=== PATIENT | female | born 1975 | race Hispanic/Latino ===

== ENCOUNTER 2019-12-20 09:32 | Emergency (ER) | payer SELFPAY ==
--- NOTE | 2019-12-20 09:47 | EDPHYS ---
Physician Documentation [facility] Name: Raiza Hartley Age: 44 yrs Sex: Female : 1975 Arrival Date: 12/20/2019 Time: 09:35 Bed 20 Private MD: out of town, doctor ED Physician Juan Gilbert HPI: 12/19 09:47 This 44 yrs old Female presents to ER via Ambulatory with complaints of kb Abscess. 09:47 The patient presents with an abscess of the left labia majora. Description: swollen. kb Onset: The symptoms/episode began/occurred 3 day(s) ago. Possible cause(s): unknown. Associated signs and symptoms: The patient has no apparent associated signs or symptoms. Modifying factors: the symptoms are alleviated by nothing, the symptoms are aggravated by nothing. Severity of symptoms: At their worst the symptoms were moderate, in the emergency department the symptoms are unchanged. The patient has not experienced similar symptoms in the past. The patient has not recently seen a physician. Pt reports she has an abscess to vaginal area that started 3 days ago. . Historical: - Allergies: 09:47 No Known Allergies; ss - PMHx: 09:47 boredline diabetic; Hypertension; ss - PSHx: 09:47 Hysterectomy; ss - Immunization history:: Adult Immunizations up to date. - Social history:: Smoking status: Patient denies any tobacco usage or history of. ROS: 09:46 Constitutional: Negative for fever, chills, and weight loss, Cardiovascular: Negative kb for chest pain, palpitations, and edema, Respiratory: Negative for shortness of breath, cough, wheezing, and pleuritic chest pain, Abdomen/GI: Negative for abdominal pain, nausea, vomiting, diarrhea, and constipation, Back: Negative for injury and pain, : Negative for injury, bleeding, discharge, and swelling, MS/Extremity: Negative for injury and deformity, Neuro: Negative for headache, weakness, numbness, tingling, and seizure. 09:46 Skin: Positive for abscess, swelling, of the left labia majora. Exam: 09:46 Constitutional: This is a well developed, well nourished patient who is awake, alert, kb and in no acute distress. Head/Face: Normocephalic, atraumatic. Neck: Trachea midline, no thyromegaly or masses palpated, and no cervical lymphadenopathy. Supple, full range of motion without nuchal rigidity, or vertebral point tenderness. No Meningismus. Chest/axilla: Normal chest wall appearance and motion. Nontender with no deformity. No lesions are appreciated. Cardiovascular: Regular rate and rhythm with a normal S1 and S2. No gallops, murmurs, or rubs. Normal PMI, no JVD. No pulse deficits. Respiratory: Lungs have equal breath sounds bilaterally, clear to auscultation and percussion. No rales, rhonchi or wheezes noted. No increased work of breathing, no retractions or nasal flaring. Abdomen/GI: Soft, non-tender, with normal bowel sounds. No distension or tympany. No guarding or rebound. No evidence of tenderness throughout. MS/ Extremity: Pulses equal, no cyanosis. Neurovascular intact. Full, normal range of motion. Neuro: Awake and alert, GCS 15, oriented to person, place, time, and situation. Cranial nerves II-XII grossly intact. Motor strength 5/5 in all extremities. Sensory grossly intact. Cerebellar exam normal. Normal gait. 09:46 Skin: abscess, that is moderate sized, of the left labia majora, with induration. Vital Signs: 09:45 BP 143 / 79; Pulse 92; Resp 17; Temp 98.3(O); Pulse Ox 100% on R/A; Weight 104.33 kg; ss Height 5 ft. 3 in. (160.02 cm); Pain 7/10; 09:45 Body Mass Index 40.74 (104.33 kg, 160.02 cm) ss MDM: 09:37 Patient medically screened. kb 09:45 Data reviewed: vital signs, nurses notes. Data interpreted: Pulse oximetry: on room air kb is 100 %. Interpretation: normal. Counseling: I had a detailed discussion with the patient and/or guardian regarding: the historical points, exam findings, and any diagnostic results supporting the discharge/admit diagnosis, the need for outpatient follow up, an OB/Gyne specialist, to return to the emergency department if symptoms worsen or persist or if there are any questions or concerns that arise at home. Administered Medications: No medications were administered Disposition: 09:56 Co-signature as Attending Physician, Juan Gilbetr MD. kdr 09:57 Co-signature as Attending Physician, Juan Gilbert MD I agree with the assessment and kdr plan of care. Disposition: 12/20/19 09:46 Discharged to Home. Impression: Cutaneous abscess of groin - left labia majora. - Condition is Stable. - Discharge Instructions: Skin Abscess, [id number]. - Prescriptions for Keflex 500 mg Oral Capsule - take 1 capsule by ORAL route every 8 hours for 10 days; 30 capsule. Bactrim DS 800- 160 mg Oral Tablet - take 1 tablet by ORAL route every 12 hours for 10 days; 20 tablet. - Medication Reconciliation Form, Thank You Letter, Antibiotic Education, Prescription Opioid Use form. - Follow up: Angie Kam MD; When: 2 - 3 days; Reason: Recheck today's complaints. Signatures: Reyna De La Rosa, WELDER GAS-C WELDER GAS-Ckb Juan Gilbert MD MD [facility] Gillian Pope, RN RN ss Corrections: (The following items were deleted from the chart) 09:49 09:46 12/20/2019 09:46 Discharged to Home. Impression: Cutaneous abscess of groin - ss left labia majora. Condition is Stable. Forms are Medication Reconciliation Form, Thank You Letter, Antibiotic Education, Prescription Opioid Use. Follow up: Angie Kam; When: 2 - 3 days; Reason: Recheck today's complaints. kb
--- NOTE | 2019-12-20 09:50 | ER ---
Nurse's Notes [facility] Name: Raiza Hartley Age: 44 yrs Sex: Female : 1975 Arrival Date: 12/20/2019 Time: 09:35 Bed 20 Private MD: out of town, doctor Diagnosis: Cutaneous abscess of groin-left labia majora Presentation: 12/19 09:45 Chief complaint: Patient states: abscess to groin area that began 3 days ago. Denies ss fever. Coronavirus screen: Proceed with normal triage. Patient denies a cough. Patient denies shortness of breath or difficulty breathing. Patient denies measured and/or subjective temperature greater than 100.4F prior to today's visit. Patient denies travel on a cruise ship or to a country the [facility] currently lists as an affected area. Patient denies contact with known and/or suspected case of COVID-19. Ebola Screen: Patient denies exposure to infectious person. Patient denies travel to an Ebola-affected area in the 21 days before illness onset. Initial Sepsis Screen: Does the patient meet any 2 criteria? No. Patient's initial sepsis screen is negative. Does the patient have a suspected source of infection? No. Patient's initial sepsis screen is negative. Risk Assessment: Do you want to hurt yourself or someone else? Patient reports no desire to harm self or others. Onset of symptoms was December 17, 2019. 09:45 Method Of Arrival: Ambulatory ss 09:45 Acuity: DA 5 ss Historical: - Allergies: 09:47 No Known Allergies; ss - PMHx: 09:47 boredline diabetic; Hypertension; ss - PSHx: 09:47 Hysterectomy; ss - Immunization history:: Adult Immunizations up to date. - Social history:: Smoking status: Patient denies any tobacco usage or history of. Screenin:47 Abuse screen: Denies threats or abuse. Denies injuries from another. Nutritional ss screening: No deficits noted. Tuberculosis screening: Never had TB. Fall Risk None identified. Assessment: 09:47 General: Appears in no apparent distress. comfortable, Behavior is calm, cooperative, ss Denies fever, feeling ill, fatigue, chills. Pain: Complains of pain in left labia majora Pain currently is 7 out of 10 on a pain scale. Quality of pain is described as tender, Pain began 2-3 days ago. Neuro: Level of Consciousness is awake, alert, obeys commands. Respiratory: Airway is patent Respiratory effort is even, unlabored, Respiratory pattern is regular, symmetrical. GI: Patient currently denies abdominal pain, diarrhea, nausea, vomiting. Derm: Skin is intact, is healthy with good turgor, Skin is dry, Skin is pink, warm \T\ dry. normal. Derm: Abscess located on left labia majora is quarter sized, has no drainage, is hot to touch, is red, is raised. Musculoskeletal: Circulation, motion, and sensation intact. Range of motion: intact in all extremities, Swelling absent. Vital Signs: 09:45 BP 143 / 79; Pulse 92; Resp 17; Temp 98.3(O); Pulse Ox 100% on R/A; Weight 104.33 kg; ss Height 5 ft. 3 in. (160.02 cm); Pain 7/10; 09:45 Body Mass Index 40.74 (104.33 kg, 160.02 cm) ss ED Course: 09:35 Patient arrived in ED. mr 09:35 out of town, doctor is Private Physician. mr 09:37 Reyna De La [facility] kb 09:37 Juan Gilbert MD is Attending Physician. kb 09:46 Angie Kam MD is Referral Physician. kb 09:46 Triage completed. ss 09:47 Arm band placed on right wrist. ss 09:47 Patient has correct armband on for positive identification. Bed in low position. Call ss light in reach. 09:47 No provider procedures requiring assistance completed. Patient did not have IV access ss during this emergency room visit. Administered Medications: No medications were administered Outcome: 09:46 Discharge ordered by . kb 09:47 Discharged to home ambulatory. ss 09:47 Condition: good 09:47 Discharge instructions given to patient, Instructed on discharge instructions, follow up and referral plans. medication usage, Demonstrated understanding of instructions, follow-up care, medications, Prescriptions given X 2. 09:49 Patient left the ED. ss Signatures: Reyna De La Rosa FNP-C FNP-Enedelia Lia Staton Gillian Pope, RN RN ss
[2019-12-20 09:54] VITALS: BP 143/79; TEMP 98.3; O2SAT 100
== END 2019-12-20 09:49 | disposition home or self-care (01) ==
LOC: ER 09:32
DX: N76.4 Abscess of vulva (principal); I10 Essential (primary) hypertension; R73.03 Prediabetes

== ENCOUNTER 2023-07-02 00:12 | Emergency (ER) | payer BC ==
--- OUTSIDE RECORDS SUMMARY | 2023-07-02 00:16 | XMS REPORT | Continuity of Care Document ---
:1975 Author Organization [facility] t Address [address] [facility] [address] [place] [id number] Care Team Providers Name Role Phone [email or web address] Attending Clinician Unavailable [email or web address] Admitting Clinician Unavailable Payers Payer Name Policy Type Policy Number Effective Date Expiration Date S wilfred[place] [id number] 2021 00:00:00 [place] Problems This patient has no known problems. Allergies, Adverse Reactions, Alerts This patient has no known allergies or adverse reactions. Medications This patient has no known medications. Procedures This patient has no known procedures. Encounters Start End Encounter Admission Attending Care Care Encounter Source Date/Time Date/Time Type Type Clinicians Facility Department ID 2023-06-08 2023-06-08 Outpatient [email or web address] PRIV PRIV [id number] [facility] 00:00:00 00:00:00 diyala_S [id number] Medic al 2023-06-08 2023-06-08 Outpatient [email or web address] PRIV PRIV [id number] [facility] 00:00:00 00:00:00 diyala_S [id number] Medic al 2023-03-31 2023-03-31 Outpatient [email or web address] PRIV PRIV [id number] [facility] 00:00:00 00:00:00 diyala_S [id number] Medic al 2023-03-31 2023-03-31 Outpatient [email or web address] PRIV PRIV [id number] [facility] 00:00:00 00:00:00 diyala_S [id number] Medic al Results This patient has no known results.
[2023-07-02] MEDS ORDERED: dexAMETHasone 10 MG/ML VIAL ONE (01:02)
[2023-07-02] MEDS ORDERED: KETOROLAC 30 MG/ML INJ ONE (01:02)
--- NOTE | 2023-07-02 01:27 | EDPHYS ---
Physician Documentation [facility] Name: Raiza Mcdowell Age: 48 yrs Sex: Female : 1975 Arrival Date: 07/02/2023 Time: 00:12 Bed IW1 Private MD: JAVI Physician Nitin Pritchard HPI: 07/02 01:41 This 48 yrs old Female presents to ER via Ambulatory with complaints of Back kb Pain. 01:41 Patient is a 48-year-old female with a history of low back pain that presents for right kb low back pain that radiates down both legs. States pain started radiating down both legs 3 to 4 days ago. Denies incontinence of bladder/bowel, urinary retention or constipation. States she has been seen by Dr. Saldana, had MRI completed and was referred to a pain management doctor. States she sees Dr. Aguilar for pain management and recently ran out of diclofenac. States this pain is similar to episode she had in the past. Ambulates with steady gait.. 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 - Social history:: Smoking status: Patient denies any tobacco usage or history of. Patient/guardian denies using alcohol, street drugs. ROS: 01:39 Constitutional: Negative for fever, chills, and weight loss, kb 01:39 Back: Positive for pain at rest, pain with movement, of the right low back, 01:39 All other systems are negative, Exam: 01:39 Constitutional: This is a well developed, well nourished patient who is awake, alert, kb and in no acute distress. Head/Face: Normocephalic, atraumatic. ENT: Moist Mucous membranes Cardiovascular: Regular rate Respiratory: Respirations even and unlabored. No increased work of breathing. Talking in full sentences Abdomen/GI: Soft, non-tender. No distention Skin: Warm, dry with normal turgor. Normal color. MS/ Extremity: Pulses equal, no cyanosis. Neurovascular intact. Full, normal range of motion. Neuro: Awake and alert, GCS 15, oriented to person, place, time, and situation. Moves all extremities. Normal gait. 01:39 Back: pain, that is moderate, of the right low back, ROM is painful, normal spinal alignment noted, CVA tenderness, is absent, vertebral tenderness, is not appreciated, Vital Signs: 00:34 BP 146 / 95; Pulse 83; Resp 20; Temp 98.1; Pulse Ox 100% ; Weight 81.65 kg; Height 5 jj7 ft. 3 in. ; Pain 8/10; 01:32 BP 141 / 89; Pulse 78; Resp 17; Pulse Ox 99% ; Pain 2/10; jj7 00:34 Body Mass Index 31.89 (81.65 kg, 160.02 cm) jj7 00:34 Pain Scale: Adult jj7 01:32 Pain Scale: Adult jj7 MDM: 00:34 Patient medically screened. 01:40 Differential diagnosis: arthritis, strain, fracture, sciatica, contusion, Herniated kb disc UTI. Data reviewed: vital signs, nurses notes. Test considered but Not performed: X-ray: x-ray considered, but pt has no bony tenderness, pain is chronic, denies trauma/injury. Counseling: I had a detailed discussion with the patient and/or guardian regarding the historical points, exam findings, and any diagnostic results supporting the discharge/admit diagnosis, the need for outpatient follow up, pain management, to return to the emergency department if symptoms worsen or persist or if there are any questions or concerns that arise at home. Response to treatment: the patient's symptoms have markedly improved after treatment. Administered Medications: 00:53 Drug: Dexamethasone IM 10 mg IM once Route: IM; Site: right gluteus; jj7 01:19 Follow up: Response: Marked relief of symptoms jj7 00:53 Drug: Ketorolac IM 30 mg IM once Route: IM; Site: right gluteus; jj7 01:19 Follow up: Response: Marked relief of symptoms jj7 Disposition Summary: 07/02/23 01:26 Discharge Ordered Notes: Location: Home Condition: Stable kb Diagnosis - Low back pain kb Followup: kb - With: Emergency Department - When: As needed - Reason: Worsening of condition Followup: kb - With: Private Physician - When: 2 - 3 days - Reason: Recheck today's complaints, Continuance of care, Re-evaluation by your physician Discharge Instructions: - Discharge Summary Sheet kb - Chronic Back Pain, [id number] kb Forms: - Medication Reconciliation Form kb - Thank You Letter kb - Antibiotic Education kb - Prescription Opioid Use kb - Patient Portal Instructions kb - Leadership Thank You Letter kb Prescriptions: - Diclofenac Sodium 75 mg Oral tablet, delayed release (enteric coated) - take 1 tablet ORAL route 2 times per day As needed; 30 tablet; Refills: 0, kb Product Selection Permitted Signatures: Reyna De La Rosa, MEMEC DIRK-Antoni Spain RN RN jj7
--- NOTE | 2023-07-02 01:27 | ER ---
Nurse's Notes [facility] Name: Raiza Mcdowell Age: 48 yrs Sex: Female : 1975 Arrival Date: 07/02/2023 Time: 00:12 Bed IW1 Private MD: Diagnosis: Low back pain Presentation: 07/02 00:34 Chief complaint: Patient states: SHOOTING PAIN DOWN BOTH LEGS FOR A FEW DAYS. jj7 Coronavirus screen: At this time, the client does not indicate any symptoms associated with coronavirus-19. Ebola Screen: No symptoms or risks identified at this time. Initial Sepsis Screen: Does the patient meet any 2 criteria? No. Patient's initial sepsis screen is negative. Does the patient have a suspected source of infection? No. Patient's initial sepsis screen is negative. Risk Assessment: Do you want to hurt yourself or someone else? Patient reports no desire to harm self or others. 00:34 Method Of Arrival: Ambulatory j 00:34 Acuity: DA 4 jj7 Triage Assessment: 00:39 General: Appears in no apparent distress. uncomfortable, Behavior is calm, cooperative, jj7 appropriate for age. Pain: Complains of pain in right leg and left leg Pain currently is 8 out of 10 on a pain scale. Musculoskeletal: Range of motion: intact in all extremities. 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 - Social history:: Smoking status: Patient denies any tobacco usage or history of. Patient/guardian denies using alcohol, street drugs. Screenin:44 [facility] ED Fall Risk Assessment (Adult) History of falling in the last 3 months, jj7 including since admission No falls in past 3 months (0 pts) Confusion or Disorientation No (0 pts) Intoxicated or Sedated Yes (3 pts) Impaired Gait No (0 pts) Mobility Assist Device Used No (0 pt) Altered Elimination No (0 pt) Score/Fall Risk Level 0 - 2 = Low Risk Oriented to surroundings, Maintained a safe environment. Abuse screen: Denies threats or abuse. Nutritional screening: No deficits noted. Tuberculosis screening: No symptoms or risk factors identified. Assessment: 00:44 Reassessment: SEE TRIAGE ASSESSMENT. Neuro: No deficits noted. jj7 Vital Signs: 00:34 BP 146 / 95; Pulse 83; Resp 20; Temp 98.1; Pulse Ox 100% ; Weight 81.65 kg; Height 5 jj7 ft. 3 in. ; Pain 8/10; 01:32 BP 141 / 89; Pulse 78; Resp 17; Pulse Ox 99% ; Pain 2/10; jj7 00:34 Body Mass Index 31.89 (81.65 kg, 160.02 cm) jj7 00:34 Pain Scale: Adult jj7 01:32 Pain Scale: Adult jj7 ED Course: 00:26 Patient arrived in ED. gm2 00:34 Reyna De La Rosa FNP-C is [facility]. kb 00:34 Nitin Pritchard MD is Attending Physician. kb 00:39 Triage completed. jj7 00:39 Arm band placed on right wrist. jj7 00:44 Patient has correct armband on for positive identification. Provided Education on: F/U. jj7 00:44 No provider procedures requiring assistance completed. Patient did not have IV access jj7 during this emergency room visit. Administered Medications: 00:53 Drug: Dexamethasone IM 10 mg IM once Route: IM; Site: right gluteus; jj7 01:19 Follow up: Response: Marked relief of symptoms jj7 00:53 Drug: Ketorolac IM 30 mg IM once Route: IM; Site: right gluteus; jj7 01:19 Follow up: Response: Marked relief of symptoms jj7 Medication: 00:44 VIS not applicable for this client. jj7 Outcome: :26 Discharge ordered by . kb 01:32 Discharged to home ambulatory, jj7 01:32 Condition: improved 01:32 Discharge instructions given to patient, Instructed on discharge instructions, follow up and referral plans. medication usage, Demonstrated understanding of instructions, follow-up care, medications, Prescriptions given X 1, 01:33 Patient left the ED. jj7 Signatures: Reyna De La Rosa FNP-C FNP-Antoni Spain, RN RN jj7 Jennifer Flores gm2
[2023-07-02 02:31] VITALS: TEMP 98.1
[2023-07-02 02:32] VITALS: BP 141/89; O2SAT 99
== END 2023-07-02 01:33 | disposition home or self-care (01) ==
LOC: ER 00:12
DX: M54.50 Low back pain, unspecified (principal)
CPT/HCPCS: 96372; 99284; J1100

== ENCOUNTER 2023-07-10 11:56 | Day surgery (SDC) | payer BC ==
[2023-07-06 08:46] LABS: Absolute Lymphocytes (CBC) 2.1 K/uL (0.7-4.9); Hematocrit 36.5 % (36.0-45.0); Lymphocytes % 25.7 % (15.3-44.8); MCV 87.6 fL (80-100); MPV 7.7 fL (7.6-11.3); Platelets 292 thou/uL (152-406); RBC Red Blood Cell Count 4.16 M/uL (3.86-4.86)
[2023-07-06 08:54] LABS: Protime INR 1.02
--- NOTE | 2023-07-06 09:01 | RAD REPORT ---
EXAM DESCRIPTION: RAD - Chest Pa And Lat (2 Views) - 07/06/2023 8:49 am CLINICAL HISTORY: pre op Bunionectomy 1st metatarsal left Chest pain. COMPARISON: No comparisons FINDINGS: Small calcified granuloma seen in the left lung base laterally. The lungs are otherwise cl ear. The heart is normal in size. No displaced fractures. IMPRESSION: No acute or concerning finding suspected. The USPSTF recommends annual screening for lung cancer with low-dose CT (LDCT) in adults aged 50 to 8 0 years who have a 20 pack-year smoking history and currently smoke or have quit within the past 15 y ears.
[2023-07-06 09:05] LABS: Potassium 4.2 mEq/L (3.5-5.1)
--- NOTE | 2023-07-08 10:58 | PREOPHP ---
Date of Admission: 07/10/2023 History Of Present Illness: This patient presented to my office with a chief complaint of a painful big toe joint present on the left foot for a number of years. The pain is worse with activity, impro perry by rest, moderate in severity, throbbing in nature. The patient has modified shoe gear, taken an xspo-utc-imczitn anti-inflammatories, although with no improvement, requests evaluation. Past Medical History: Diabetes, asthma, arthritis, and hypertension. Current Medications: Include, phentermine, atorvastatin 20 mg, gabapentin 600 mg, amlodipine 10 mg, benazepril 40 mg, glyburide 5 mg, metformin 500 mg, Ozempic 2 mg per dose subcutaneous injector. Allergies: NKDA. Past Surgical History: Includes , cholecystectomy, and partial hysterectomy. Social History: The patient denies smoking, alcohol, or IV drug use. Family History: Includes diabetes in her father. Physical Examination: Vital Signs: Weight 170, height 5 feet 3 inches. General: The patient is healthy, well developed, well nourished, well oriented x3. Cardiovascular: Dorsalis pedis and posterior tibial pulses are 4/4 bilaterally. Capillary refill ti me is less than 3 seconds to all toes. Temperature gradient is within normal limits. There is no cl audication, complaint or varicosities noted bilaterally. Musculoskeletal: Evaluation reveals a flexible pes planus foot type bilaterally. Subtalar joint gary ws increased valgus bilaterally. There is forefoot supinatus with adductus bilaterally. There is a medial eminence of the first metatarsal head with range of motion on the left tube at 80 degrees, but adducted and an 80 degrees right. Equinus is noted to be 0 degrees bilaterally per goniometer measu rement. Digits of both feet are noted to be contracted at the PIPJ, 2-5 semiflexible bilat. Muscle knee and ankle assessment are within normal limits. There is no tenderness on the plantar fascia. N o soft tissue masses are noted subcutaneously. Skin: Evaluation reveals no rash, ulcer, tumor, or contracture. Neurologic: Evaluation reveals deep tendon reflexes with the patella and Achilles to be 5/5 bilatera lly. Vibratory and sharp dull sensation within normal limits. X-ray: Evaluation of the left foot revealed an intermetatarsal angle of 16 degrees and hallux abduct us angle of 25 degrees, and HI angle of 18 degrees. Os tibiale externum type 2 is noted. Os trigonu m is present. There is calcification present of the dorsalis pedis and posterior tibial arteries and the first metatarsal artery noted on x-ray. There is a lateral deviation of the hallux and sesamoid s with increase in each intermetatarsal angle. Inferior and posterior calcaneal spur noted. Lesser metatarsals are adducted 1-4. No fracture tumor or DJD is noted bilaterally. Bones well mineralized . The diagnosis is hallux valgus deformity, left foot; pain in the left foot; and other deformities of toes, specifically the proximal phalanx and the hallux, which has an angulation deformity. The re commended treatment is for a bunionectomy with first metatarsal head osteotomy and an osteotomy of th e proximal phalanx to correct a separate angulation deformity of the proximal phalanx, both with fixa tion. The patient understands risks, benefits, and alternatives of the above-mentioned procedures in cluding, but not limited to the risk of pain, swelling, numbness, stiffness, infection, nonhealing of skin, soft tissue bone, loosening of fixation devices, and recurrence of the deformity. The patient requests surgical management and no longer desires conservative care. The patient has had a lower e xtremity arterial Doppler, which was within normal limits by Dr. Marshall finding the patient had good bl ood flow. The patient has been cleared by Dr. Diego, her primary care doctor from a diabetic standp oint. The patient was instructed on the use of cold therapy unit and a seal-tight device to keep the bandages dry in a postop shoe. The patient understands there is no work for at least 4-5 weeks and a postop shoe for 5 weeks. Medical H and P will be completed by Anesthesia. The patient has been in structed and has stopped her phentermine 1 week prior to surgery as well as her Ozempic. The patient is scheduled for surgery at [facility] on July 10, 2023. HUBERT/BRITTNEY Voice ID: [id number]
[2023-07-10] MEDS: NA CHLORIDE 0.9% 1,000 ML ONE ×2 (12:35→13:25)
[2023-07-10] MEDS ORDERED: CEFAZOLIN SODIUM 1 GM/VIAL ONE (12:37)
[2023-07-10] MEDS ORDERED: propofoL 200 MG/20 ML VIAL IV ONE (13:15)
[2023-07-10] MEDS ORDERED: FENTANYL CITR 100 MCG/2 ML ONE (13:15)
[2023-07-10] MEDS ORDERED: LIDOCAINE 2% MPF 5 ML VIAL ONE (13:16)
[2023-07-10] MEDS ORDERED: MIDAZOLAM HCL 2 MG/2 ML INJ ONE (13:17)
[2023-07-10] MEDS ORDERED: NA CHLORIDE 0.9% 50 ML ONE (13:21)
[2023-07-10] MEDS ORDERED: HYDROMORPHONE HCL 1 MG/ML INJ ONE (13:22)
[2023-07-10] MEDS ORDERED: NA CHLORIDE 0.9% 100 ML ONE (13:23)
[2023-07-10] MEDS ORDERED: ONDANSETRON 4 MG/2 ML VIAL ONE (13:47)
[2023-07-10] MEDS ORDERED: dexAMETHasone 10 MG/ML VIAL ONE (13:47)
[2023-07-10] MEDS ORDERED: EPHEDRINE SULF 50 MG/ML VIAL ONE (14:03)
--- NOTE | 2023-07-10 16:24 | RAD REPORT ---
EXAM DESCRIPTION: RAD - Foot Left 2 View - 07/10/2023 3:35 pm CLINICAL HISTORY: S/P LEFT FOOT BUNIONECTOMY W SCREW COMPARISON: No comparisons TECHNIQUE: Left foot, 3 views. FINDINGS: Postsurgical changes of first metatarsal osteotomy, with a cannulated fusion screw. No bart dence of complications. Adjacent postsurgical changes in the soft tissues. No fracture, dislocation or periosteal reaction. Accessory ossicle of the navicular. Moderate calcaneal spur. No air or foreign body in the soft tissues. IMPRESSION: Postsurgical changes of first metatarsal osteotomy. No other acute findings.
[2023-07-10 17:13] VITALS: TEMP 96.9; O2SAT 98
[2023-07-10 17:20] VITALS: BP 126/68
--- NOTE | 2023-07-10 23:13 | OP ---
Date of Procedure: 07/10/2023 Surgeon: Beni Roche DPM Preoperative Diagnosis: Hallux valgus deformity, left foot. Postoperative Diagnosis: Hallux valgus deformity, left foot. Procedure: Bunionectomy with first metatarsal head osteotomy with screw fixation and packing of bone cyst found intraoperatively with bone chips from the first metatarsal and [employer] DBX putty, l eft foot. Anesthesia: General. Procedure In Detail: The patient was brought into the operating room, placed on the operating room t able in the supine position. Once adequate anesthesia was obtained, the patient was prepped and drap ed in usual sterile manner. The left extremity was elevated for a period of 3 minutes to exsanguinat e the blood supply. Pneumatic ankle tourniquet was elevated to 250 mmHg. Attention was then directe d to the first MPJ of the left foot, where a dorsal linear incision was made overlying the first MPJ with a 15 blade. The incision was deepened via sharp and blunt dissection down to the level of capsu le, which was incised with a 15 blade in an inverted L-shaped fashion. Capsular tissue was dissected free from its bony attachments and the medial eminence was brought into view and resected utilizing an oscillating saw. The first interspace was then approached and a lateral capsulotomy, adductor ten otomy, and EHB tenotomy were performed. The foot was then repositioned with the knee bent and a V-sh aped osteotomy was created in the head of the first metatarsal with the apex distal and the arms prox imal. Utilizing an oscillating saw from medial to lateral, the osteotomy was created and the capital fragment was shifted laterally and impacted medially upon the shaft of the first metatarsal. The re maining eminence was removed utilizing the oscillating saw. With mild feathering to create a bicorre ctional osteotomy, a cyst was exposed at the apex medially of the first metatarsal shaft and collapse d approximately 1 cm in diameter by 5 mm in depth. It was a mild fluid and cystic formation. This w as curetted down to the solid bone. Bone chips from the second cut of the medial eminence were broke n up and placed into the cyst along with MTF DBX bone putty. It was filled and packed level with the shaft. The head was then fixated upon the shaft utilizing screw, 20 mm x 2.5 screw. A w haja was drilled from distal lateral to proximal plantar medial to avoid the cyst. It was then pre-dr illed and the screw was then placed after measuring and advanced the screw bit on the plantar cortex and good compression was obtained with no movement. The range of motion of the first MPJ was seen to be in excellent alignment and 80 degrees range of motion dorsally. The area was flushed with copiou s amounts of sterile saline. A medial capsulorrhaphy was then performed with the toe held in the cor rected position and utilizing 2-0 Vicryl sutures, capsular tissue was reapproximated. The extensor t endon was then tacked medially with 2 Vicryl sutures. The area was flushed again and good range of m otion was still obtained. The skin was closed utilizing 4-0 Prolene horizontal mattress suture. The foot was then injected with 10 cc of 0.5% Marcaine plain for anesthesia. The foot was dressed with Adaptic, dry sterile gauze, dry sterile Colby, Kerlix, cold therapy pad, Alvin bandaging. Pneumatic an kle tourniquet was released and capillary return was seen to be instantaneous to all digits. The pat ient was discharged to recovery in satisfactory condition. HUBERT/BRITTNEY Voice ID: [id number] Report ID: [id number]
--- NOTE | 2023-07-10 23:13 | DS ---
Date of Discharge: 07/10/2023 Date Of Surgery: 07/10/2023 Surgeon: Beni Roche DPM Preoperative Diagnosis: Hallux valgus deformity, left foot. Postoperative Diagnosis: Hallux valgus deformity, left foot. Procedure: Bunionectomy with first metatarsal head osteotomy with screw fixation, 20 mm x 2.5 screw and packing of bone cyst with DBX bone putty, all left foot. The patient tolerated the procedure and anesthesia well. Will be discharged to home in satisfactory condition per Anesthesia guidelines. T he patient has postop instructions and written form as well as emergency phone number and postop medi cations. The patient will be seen in my office in 6 days for postoperative care. HUBERT/BRITTNEY Voice ID: [id number] Report ID: [id number]
--- NOTE | 2023-07-11 14:33 | EKG ---
Test Date: 2023-07-06 Test Time: 09:33:22 Capsule Machine Operator: YUNIER MEASUREMENT RESULTS: Intervals: Rate: 70 [place]: 140 QRSD: 74 QT: 364 QTc: 393 [place]: P: 48 [place]: 140 QRS: 23 T: 36 INTERPRETIVE STATEMENTS: Normal sinus rhythm Possible Left atrial enlargement Septal infarct, age undetermined Abnormal ECG No previous ECG available for comparison Electronically Signed On 07-11-23 14:18:04 DIRECTOR OF CLOUD SERVICES by Randy Del Real
== END 2023-07-10 16:50 | disposition home or self-care (01) ==
LOC: OR 11:56
PROVIDERS: ATTEND Podiatrist
PROC: 0QSP04Z Reposition Left Metatarsal with Internal Fixation Device, Open Approach (ICD-10-PCS; principal; 2023-07-10 13:30)
DX: M20.12 Hallux valgus (acquired), left foot (principal); M79.672 Pain in left foot; E11.9 Type 2 diabetes mellitus without complications; I10 Essential (primary) hypertension; J45.909 Unspecified asthma, uncomplicated
CPT/HCPCS: 93005; 85025; 80048; 36415; 85610; 82947 ×2; 85730; 71046; 73620; 28296; J2704; J2001; J2250; J3010; J1100; J1170; J2405; J7030; J0690